=== PATIENT | male | born 1955 | race Caucasian/White ===

== ENCOUNTER → 2017-04-29 | Day surgery (SDC) | payer OTHER ==
[~2017-04-29] MED LIST: Iodixanol 320 MG/ML 200 ML BOTTLE IV ONE; Lidocaine 2% Inj (20ml) ONE; Midazolam 2 MG/2 ML VIAL ONE
[2017-04-29 14:42] VITALS: BMI 33.2
--- NOTE | 2017-04-29 16:43 | CATH ---
APPROVED REPORT Procedure(s) performed: Complete Heart Catheterization, [facility] ANGIO HISTORY The patient is a 61 year-old male with a history of : coronary artery disease, previous PCI (The PCI date was ), hypertension, dyslipidemia, family history of premature CAD. INDICATION The indication(s) include : non-STEMI (>72 hrs to = 7 days), chest pain, arrhythmia. CASE TECHNIQUE The patient was brought electively to the Cardiac Catheterization Laboratory in a fasting state and was prepped and draped in a sterile manner. The right femoral groin was infiltrated with 2% Lidocaine subcutaneous anesthesia. A sheath was inserted into the right femoral artery without difficulty. Coronary angiography was performed using coronary diagnostic catheters. The left coronary system was accessed and visualized with a Diagnostic catheter. The right coronary system was accessed and visualized with a Diagnostic catheter. The left ventricle was accessed and visualized with a Diagnostic catheter. Left ventricular/Aortic Valve gradient assessed on pullback. Left ventriculogram was performed in [id number] projection. Pre-demployment femoral angiogram was performed . Closure device was deployed with a Fr Angioseal without any complications. Vessel Analysis The patient's coronary anatomy is right dominant. The left main coronary artery is a medium size vessel without stenosis. The left main bifurcates to the left anterior descending and circumflex. The left anterior descending artery is a large size vessel . There is a 40% stenosis in the proximal segment. The first diagonal branch is a small size vessel without stenosis. The circumflex artery is a large size vessel without stenosis. The first obtuse marginal branch is a medium size vessel with stenosis. There is a 85% stenosis in the proximal segment. The right coronary artery is a large size vessel without stenosis. There is a 99% stenosis in the distal segment. The right posterior descending artery is a medium size vessel without significant stenosis. The right posterolateral branch is a medium size vessel without stenosis. The proximal RCA stent is patent with mild luminal irreg. There is a 70% stenosis of the immediate post stent segment.
== END | disposition home or self-care (01) ==
LOC: C.CATHLAB 11:31
PROVIDERS: ATTEND Internal Medicine Cardiovascular Disease
DX: I21.4 Non-ST elevation (NSTEMI) myocardial infarction (principal); E78.5 Hyperlipidemia, unspecified; I10 Essential (primary) hypertension; I25.10 Atherosclerotic heart disease of native coronary artery without angina pectoris
CPT/HCPCS: 82948; 93452; J1644; J2250; J3010; Q9966